=== PATIENT | male | born 1945 | race Caucasian/White ===

== ENCOUNTER 2018-12-29 16:43 | Inpatient (IN) | payer OTHER ==
[2018-12-29] MEDS ORDERED: Furosemide 40 MG/4 ML VIAL IVPUSH ONE (17:11)
--- NOTE | 2018-12-29 17:14 | EDM.PDOC ---
ED HPI GENERAL MEDICAL PROBLEM - General Chief Complaint: Cardiovascular Problem Stated Complaint: heart issues Time Seen by Provider: 12/29/18 17:00 Source of Information: Reports: Patient, Family History Limitations: Reports: No Limitations - History of Present Illness INITIAL COMMENTS - FREE TEXT/NARRATIVE: 73-year-old male who has ongoing shortness of breath, peripheral edema and water retention over the past several weeks being followed by cardiology in [place] and at the [place]. He is taking Lasix but he is not improving. He has had a nuclear med study as well as an echocardiogram in the last month. It shows a low ejection fraction, 2 weeks ago his ejection fraction was only 20%. His rate usually runs 90-110, but over the past 24 hours it's been 130 to 135, he's had increased shortness of breath with any activity and he called his veterinary radiologist and he told him to come in and get evaluated. He is not having pain. He feels his lower extremity edema is getting worse. Denies any fever or chills. No urinary symptoms. Onset: Gradual Duration: Week(s): (Over the course of several weeks but much worse over the past 48 hours) Associated Symptoms: Reports: Malaise, Shortness of Breath, Weakness. Denies: Chest Pain, Cough - Related Data Allergies Allergy/AdvReac Type Severity Reaction Status Date / Time No Known Allergies Allergy Verified 12/29/18 16:59 Home Meds: Home Meds Levothyroxine Sodium [Synthroid] 150 mcg PO DAILY 11/28/18 [History] Metoprolol Succinate 12.5 mg PO BID 11/28/18 [History] Nitroglycerin 1 tab SL ASDIRECTED 11/28/18 [History] Potassium Chloride 0.5 tab PO BID 11/28/18 [History] atorvaSTATin [Lipitor] 0.5 tab PO BEDTIME 11/28/18 [History] Furosemide 40 mg PO BID #60 12/31/18 [Rx] Lisinopril [Prinivil] 5 mg PO DAILY #30 tablet 12/31/18 [Rx] Magnesium Oxide 400 mg PO BID #60 tablet 12/31/18 [Rx] Past Medical History HEENT History: Reports: Impaired Vision Cardiovascular History: Reports: SOB on Exertion Genitourinary History: Reports: Renal Calculus Musculoskeletal History: Reports: Fracture Social & Family History - Tobacco Use Smoking Status *Q: Never Smoker - Caffeine Use Caffeine Use: Reports: Coffee - Recreational Drug Use Recreational Drug Use: No ED ROS GENERAL - Review of Systems Review Of Systems: See Below Constitutional: Denies: Fever, Chills Respiratory: Reports: Shortness of Breath Cardiovascular: Denies: Chest Pain, Palpitations GI/Abdominal: Denies: Abdominal Pain, Nausea, Vomiting : Reports: No Symptoms Neurological: Reports: Weakness ED EXAM, GENERAL - Physical Exam Exam: See Below Exam Limited By: No Limitations General Appearance: Alert, No Apparent Distress Respiratory/Chest: No Respiratory Distress, Other (Decreased breath sounds in both posteriorly) Cardiovascular: Tachycardia, Irregularly Irregular (Somewhat irregular rhythm) GI/Abdominal: Soft, Non-Tender, Other (Feels mildly distended) Extremities: Pedal Edema (2+ pedal edema past the knees bilaterally, symmetric) Neurological: Alert, Oriented, No Motor/Sensory Deficits Psychiatric: Normal Affect, Normal Mood Skin Exam: Warm, Dry Course - Vital Signs Last Recorded V/S: Last Vital Signs Temp 206.2 F H 12/31/18 07:44 Pulse 97 12/31/18 08:23 Resp 22 H 12/31/18 07:44 BP 124/67 12/31/18 08:24 Pulse Ox 93 L 12/31/18 07:44 - Orders/Labs/Meds Labs: Laboratory Tests 12/29/18 12/29/18 Range/Units 17:19 17:19 WBC 7.8 (4.5-11.0) K/uL RBC 4.40 (4.30-5.90) M/uL Hgb 13.6 (12.0-15.0) g/dL Hct 39.5 L (40.0-54.0) % MCV 90 (80-98) fL MCH 31 (27-31) pg MCHC 34 (32-36) % Plt Count 293 (150-400) K/uL Neut % (Auto) 60 (36-66) % Lymph % (Auto) 24 (24-44) % [place] % (Auto) 12 H (2-6) % Eos % (Auto) 4 (2-4) % Baso % (Auto) 1 (0-1) % Sodium 137 L (140-148) mmol/L Potassium 3.6 (3.6-5.2) mmol/L Chloride 103 (100-108) mmol/L Carbon Dioxide 18 L (21-32) mmol/L Anion Gap 19.6 H (5.0-14.0) mmol/L BUN 23 H (7-18) mg/dL Creatinine 1.2 (0.8-1.3) mg/dL Est Cr Clr Drug Dosing 53.19 mL/min Estimated GFR (MDRD) 59 L (>60) Glucose 103 (74-106) mg/dL Calcium 9.3 (8.5-10.1) mg/dL Total Bilirubin 0.9 (0.2-1.0) mg/dL AST 30 (15-37) U/L ALT 37 (12-78) U/L Alkaline Phosphatase 110 (46-116) U/L Troponin I 0.030 (0.000-0.056) ng/mL Total Protein 6.6 (6.4-8.2) g/dL Albumin 3.7 (3.4-5.0) g/dL Globulin 2.9 (2.3-3.5) g/dL Albumin/Globulin Ratio 1.3 (1.2-2.2) Meds: Medications Discontinued Medications Generic Name Dose Route Start Last Admin Trade Name Freq PRN Reason Stop Dose Admin Acetaminophen 650 mg 12/29/18 19:56 Tylenol PO Q4H PRN Pain (Mild 1-3)/fever Albuterol 2.5 mg 12/29/18 19:56 Proventil Neb Soln NEB Q4H PRN Shortness Of Breath/wheezing Atorvastatin Calcium 5 mg 12/29/18 21:00 12/30/18 21:22 Lipitor PO 5 mg BEDTIME [facility] Administration Enoxaparin Sodium 40 mg 12/29/18 19:56 12/29/18 21:04 Lovenox SUBCUT 40 mg DAILY [facility] Administration Enoxaparin Sodium 40 mg 12/30/18 21:00 12/30/18 21:23 Lovenox SUBCUT 40 mg Q24H [facility] Administration Furosemide 40 mg 12/29/18 17:11 12/29/18 17:21 Lasix IVPUSH 12/29/18 17:12 40 mg ONETIME ONE Administration Furosemide 40 mg 12/30/18 09:20 12/30/18 09:31 Lasix IVPUSH 12/30/18 09:21 40 mg NOW ONE Administration Furosemide 40 mg 12/30/18 19:00 12/30/18 18:04 Lasix IVPUSH 12/30/18 19:01 40 mg NOW ONE Administration Furosemide 40 mg 12/31/18 08:30 12/31/18 08:33 Lasix IVPUSH 12/31/18 08:31 40 mg NOW ONE Administration Magnesium Sulfate 2 gm/ Premix 50 mls @ 25 mls/hr 12/30/18 10:00 12/30/18 16: 58 IV 12/30/18 17:59 25 mls/hr Q6H [facility] Administration Levothyroxine Sodium 150 mcg 12/30/18 07:30 12/31/18 07:40 Synthroid PO 150 mcg DAILY@0730 [facility] Administration Lisinopril 5 mg 12/30/18 11:00 12/31/18 08:24 Prinivil PO 5 mg DAILY [facility] Administration Magnesium Oxide 400 mg 12/30/18 09:15 12/31/18 08:23 Magnesium Oxide PO 400 mg BID [facility] Administration Metoprolol Succinate 12.5 mg 12/29/18 21:00 12/31/18 08:23 Toprol Xl PO 12.5 mg BID [facility] Administration Ondansetron HCl 4 mg 12/29/18 19:56 Zofran IV Q4H PRN Nausea/Vomiting Polyethylene Glycol 17 gm 12/29/18 19:56 Miralax PO DAILY PRN Constipation Potassium Chloride 10 meq 12/29/18 21:00 12/31/18 08:23 Potassium Chloride PO 10 meq BID [facility] Administration Potassium Chloride 40 meq 12/31/18 08:30 12/31/18 08:32 Klor-Con M20 PO 12/31/18 08:31 40 meq ONETIME ONE Administration Potassium Chloride 40 meq 12/31/18 12:45 12/31/18 13:10 Klor-Con M20 PO 12/31/18 12:46 40 meq ONETIME ONE Administration Sodium Chloride 10 ml 12/29/18 19:56 Saline Flush FLUSH ASDIRECTED PRN Keep Vein Open - Re-Assessments/Exams Free Text/Narrative Re-Assessment/Exam: 12/29/18 17:54 IV was started, CBC CMP and troponin obtained. Past records were reviewed including his recent echocardiogram and nuclear medicine stress test. His ejection fraction almost 4 weeks ago was 37%, on his echocardiogram 2 weeks ago it was less than 20. An IV was started and he was given 40 mg of IV Lasix. Two- view chest x-ray obtained shows significant congestive heart failure with bilateral pleural effusions and cardiomegaly. 12/29/18 18:06 Troponin was normal. CBC also normal. Kidney function is basically normal, GFR just slightly low at 59. 12/29/18 18:07 Dr. Pollard of the hospitalist service was consult to evaluate the patient for admission for IV diuresis and monitoring of worsening congestive heart failure. Departure - Departure Time of Disposition: 19:04 Disposition: Admitted As Inpatient 64 Condition: Fair Clinical Impression: Congestive heart failure (CHF) Qualifiers: Heart failure type: combined systolic and diastolic Heart failure chronicity: acute on chronic Qualified Code(s): I50.43 - Acute on chronic combined systolic (congestive) and diastolic (congestive) heart failure
--- NOTE | 2018-12-29 18:22 | CRLCR ---
Indication: Dyspnea. Technique: PA and lateral views the chest were obtained. Comparison: None Findings: The heart is borderline in size. Bibasilar atelectasis and/or infiltrates and small bilateral pleural effusions are seen. No pneumothorax is identified. Impression: Borderline cardiomegaly. Bibasilar atelectasis and/or infiltrates and bilateral pleural effusions Dictated by Roxana Caraballo MD @ Dec 29 2018 6:20PM Signed by Dr. Roxana Caraballo @ Dec 29 2018 6:20PM
--- NOTE | 2018-12-29 19:09 | PCM.HP.2 ---
H&P History of Present Illness - General Date of Service: 12/29/18 Admit Problem/Dx: Admission Diagnosis/Problem Admission Diagnosis/Problem Congestive heart failure Source of Information: Patient, Family, Old Records, Provider, RN Notes Reviewed History Limitations: Reports: No Limitations - History of Present Illness Initial Comments - Free Text/Narative: Mr. Kmuar is a 73-year-old gentleman who was admitted through the emergency department with increased peripheral edema, tachycardia, and shortness of breath , secondary to congestive heart failure exacerbation. Over the past 2-1/2 months he's had difficulty with shortness of breath. Recent evaluation has included echocardiogram which showed decreased left ventricular function and estimated ejection fraction of 20%, decreased right ventricular function, severe MR and TR, as well as pulmonary hypertension. Nuclear medicine Myoview study was obtained and showed a small area of ischemia as well as previous area of infarct. Left ventricular function was also documented decreased with estimated ejection fraction of 34%. He recently had an appointment with cardiology but unfortunately his studies were not available for review at that time. He has another appointment scheduled with cardiology in mid January. He is experienced shortness of breath over the past several months but it's been somewhat worse over the past few days and he's developed fairly significant peripheral edema with swelling up to his knees. Troponin level was found to be within normal range and he is received 40 mg of IV furosemide in the emergency department. He admits that he has not been following a strict low-sodium diet. - Related Data Allergies/Adverse Reactions: Allergies Allergy/AdvReac Type Severity Reaction Status Date / Time No Known Allergies Allergy Verified 12/29/18 16:59 Home Medications: Home Meds Furosemide 0.5 tab PO BID 11/28/18 [History] Levothyroxine Sodium [Synthroid] 150 mcg PO DAILY 11/28/18 [History] Metoprolol Succinate 12.5 mg PO BID 11/28/18 [History] Nitroglycerin 1 tab SL ASDIRECTED 11/28/18 [History] Potassium Chloride 0.5 tab PO BID 11/28/18 [History] atorvaSTATin [Lipitor] 0.5 tab PO BEDTIME 11/28/18 [History] Past Medical History HEENT History: Reports: Impaired Vision Cardiovascular History: Reports: SOB on Exertion Genitourinary History: Reports: Renal Calculus Musculoskeletal History: Reports: Fracture Social & Family History - Tobacco Use Smoking Status *Q: Never Smoker - Caffeine Use Caffeine Use: Reports: Coffee - Recreational Drug Use Recreational Drug Use: No H&P Review of Systems - Review of Systems: Review Of Systems: See Below General: Reports: Weakness. Denies: Fever, Chills HEENT: Reports: No Symptoms Pulmonary: Reports: Shortness of Breath. Denies: Wheezing, Pleuritic Chest Pain , Cough, Sputum, Hemoptysis Cardiovascular: Reports: Dyspnea on Exertion, Edema. Denies: Chest Pain, Palpitations, Orthopnea, PND, Lightheadedness Gastrointestinal: Reports: No Symptoms Genitourinary: Reports: No Symptoms Musculoskeletal: Reports: No Symptoms Skin: Reports: No Symptoms Psychiatric: Reports: No Symptoms Neurological: Reports: No Symptoms Hematologic/Lymphatic: Reports: No Symptoms Immunologic: Reports: No Symptoms Exam - Exam Exam: See Below - Vital Signs Vital Signs: Last Vital Signs Temp 97.6 F 12/29/18 17:04 Pulse 118 H 12/29/18 18:38 Resp 36 H 12/29/18 18:38 BP 140/95 H 12/29/18 18:38 Pulse Ox 92 L 12/29/18 18:38 Weight: 194 lb 14.218 oz - Exam Quality Assessment: DVT Prophylaxis General: Alert, Oriented, Cooperative, Moderate Distress HEENT: Conjunctiva Clear, Hearing Intact, Mucosa Moist & [place], Normal Nasal Septum, Posterior Pharynx Clear, Pupils Equal Neck: Supple, Trachea Midline, +2 Carotid Pulse wo Bruit Lungs: Decreased Breath Sounds, Rales. No: Rhonchi, Rub, Wheezing Cardiovascular: Regular Rhythm, Normal S1, Normal S2, Tachycardia, Systolic Murmur. No: Diastolic Murmur, Gallop/S3, Gallop/S4 GI/Abdominal Exam: Soft, Non-Tender, No Organomegaly, No Distention Back Exam: Normal Inspection, Full Range of Motion Extremities: Non-Tender, Pedal Edema Skin: Warm, Dry, Intact Neurological: Cranial Nerves Intact, Strength Equal Bilateral, Normal Speech, Normal Tone, Sensation Intact. No: Focal Deficit Neuro Extensive - Mental Status: Alert, Oriented x3, Normal Mood/Affect, Normal Cognition, Memory Intact - Patient Data Lab Results Last 24 hrs: Laboratory Results - last 24 hr 12/29/18 12/29/18 Range/Units 17:19 17:19 WBC 7.8 (4.5-11.0) K/uL RBC 4.40 (4.30-5.90) M/uL Hgb 13.6 (12.0-15.0) g/dL Hct 39.5 L (40.0-54.0) % MCV 90 (80-98) fL MCH 31 (27-31) pg MCHC 34 (32-36) % Plt Count 293 (150-400) K/uL Neut % (Auto) 60 (36-66) % Lymph % (Auto) 24 (24-44) % [place] % (Auto) 12 H (2-6) % Eos % (Auto) 4 (2-4) % Baso % (Auto) 1 (0-1) % Sodium 137 L (140-148) mmol/L Potassium 3.6 (3.6-5.2) mmol/L Chloride 103 (100-108) mmol/L Carbon Dioxide 18 L (21-32) mmol/L Anion Gap 19.6 H (5.0-14.0) mmol/L BUN 23 H (7-18) mg/dL Creatinine 1.2 (0.8-1.3) mg/dL Est Cr Clr Drug Dosing 53.19 mL/min Estimated GFR (MDRD) 59 L (>60) Glucose 103 (74-106) mg/dL Calcium 9.3 (8.5-10.1) mg/dL Total Bilirubin 0.9 (0.2-1.0) mg/dL AST 30 (15-37) U/L ALT 37 (12-78) U/L Alkaline Phosphatase 110 (46-116) U/L Troponin I 0.030 (0.000-0.056) ng/mL Total Protein 6.6 (6.4-8.2) g/dL Albumin 3.7 (3.4-5.0) g/dL Globulin 2.9 (2.3-3.5) g/dL Albumin/Globulin Ratio 1.3 (1.2-2.2) Result Diagrams: 12/29/18 17:19 12/29/18 17:19 *Q Meaningful Use (ADM) - VTE Risk Assess *Q Each Risk Factor Represents 1 Point: Swollen Legs, Current, Obesity ( BMI > 25 kg/m2), Congestive heart failure (CHF) Total Score 1 Point Risk Factors: 3 Each Risk Factor Represents 2 Points: None Total Score 2 Point Risk Factors: 0 Each Risk Factor Represents 3 Points: Age 75 Years or Greater Total Score 3 Point Risk Factors: 3 Each Risk Factor Represents 5 Points: None Total Score 5 Point Risk Factors: 0 Venous Thromboembolism Risk Factor Score *Q: 6 Problem List Initiated/Reviewed/Updated: Yes Orders Last 24hrs: Active Orders 24 hr Category Date Time Status Patient Status Manage Transfer [TRANSFER] Routine ADT 12/29/18 18:59 Ordered EKG Documentation Completion [RC] ASDIRECTED Care 12/29/18 17:08 Active Resuscitation Status Routine Resus Stat 12/29/18 19:00 Ordered EKG 12 Lead [EK] Routine Ther 12/29/18 17:08 Ordered Assessment/Plan Comment:: ASSESSMENT AND PLAN CONGESTIVE HEART FAILURE-recent evaluation has documented severely decreased left ventricular function, decreased right ventricular function, severe MR and TR, and pulmonary hypertension. He has been taking furosemide 20 mg twice daily and readily admits that he has not been following a strict low-sodium diet. He is been eating ham recently and over the past few days is noted significant worsening of his peripheral edema as well as some increase in shortness of breath. -2 g sodium diet -Furosemide 40 mg IV given in emergency department -Reassess fluid status in a.m. with response to furosemide, further diuresis to be ordered after review -Consider addition of MARLENE inhibitor therapy to current regimen -Outpatient follow-up with cardiology scheduled -Monitor in ICU overnight, if stable transfer to [facility] surgical status MAINTENANCE ISSUES -DVT prophylaxis; Lovenox 40 mg subcutaneous daily -GI prophylaxis; continue outpatient PPI therapy -Thompson catheter; not indicated -Nutrition; 2 g sodium diet -Nicotine dependence; not required CODE STATUS-FULL CODE ADMISSION STATUS-patient will be admitted to inpatient status, expect at least a 2 night hospital stay for evaluation and management of problems as outlined above. At the time of this admission I do not reasonably expected evaluation and management of this problem will require more than a 96 hour hospital stay. DISPOSITION-anticipate discharge to home after the hospital stay. PRIMARY CARE PROVIDER-patient receives health care through the [place] [facility] system - Mortality Measure Prognosis:: Good
[2018-12-29] MEDS ORDERED: Sodium Chloride 0.9% 10 ML Syringe FLUSH PRN (19:56)
[2018-12-29] MEDS ORDERED: Albuterol 0.083% 2.5 MG/3 ML Neb Soln NEB PRN (19:56)
[2018-12-29] MEDS ORDERED: Enoxaparin 40 MG/0.4 ML Syringe SUBCUT SCH (19:56)
[2018-12-29] MEDS ORDERED: Acetaminophen 325 MG Tab PO PRN (19:56)
[2018-12-29] MEDS ORDERED: Polyethylene Glycol 3350 Powder 17 GM Packet PO PRN (19:56)
[2018-12-29] MEDS ORDERED: Ondansetron 4 MG/2 ML SDV IV PRN (19:56)
[2018-12-29] MEDS: Potassium Chloride 10 MEQ Cap.ER PO SCH (21:04)
[2018-12-29] MEDS: Metoprolol Succinate 25 MG Tab.ER PO SCH (21:04)
[2018-12-29] MEDS: atorvaSTATin 10 MG Tab PO SCH (21:07)
[2018-12-30] MEDS: Levothyroxine 50 MCG Tab PO SCH (07:42)
[2018-12-30] MEDS: Metoprolol Succinate 25 MG Tab.ER PO SCH ×2 (08:48→21:22)
[2018-12-30] MEDS: Potassium Chloride 10 MEQ Cap.ER PO SCH ×2 (08:48→21:21)
[2018-12-30] MEDS ORDERED: Furosemide 40 MG/4 ML VIAL IVPUSH ONE ×2 (09:20→19:00)
[2018-12-30] MEDS: Magnesium Oxide 400 MG Tab PO SCH ×2 (09:33→21:22)
[2018-12-30] MEDS: Magnesium Sulfate/Water 2 GM in Premix Bag 1 BAG IV SCH ×2 (09:35→16:58)
--- NOTE | 2018-12-30 11:14 | PCM.PN ---
- General Info Date of Service: 12/30/18 Subjective Update: Mr. Kumar has been stable since admission, with good diuresis. Level of dyspnea has improved and peripheral edema markedly improved. He currently denies any symptoms of chest pain or pressure. Functional Status: Reports: Tolerating Diet, Urinating - Review of Systems General: Reports: Weakness. Denies: Fever, Chills Pulmonary: Reports: Shortness of Breath. Denies: Pleuritic Chest Pain, Cough, Sputum, Hemoptysis, Wheezing Cardiovascular: Reports: Dyspnea on Exertion, Edema. Denies: Chest Pain, Palpitations, Orthopnea, PND, Lightheadedness Gastrointestinal: Reports: No Symptoms - Patient Data Vitals - Most Recent: Last Vital Signs Temp 98.2 F 12/30/18 08:00 Pulse 115 H 12/30/18 08:48 Resp 26 H 12/30/18 08:00 BP 129/84 12/30/18 08:48 Pulse Ox 90 L 12/30/18 08:00 Weight - Most Recent: 190 lb I&O - Last 24 Hours: Intake & Output 12/29/18 12/30/18 12/30/18 22:59 06:59 14:59 Intake Total 120 200 360 Output Total 1850 700 300 Balance -1730 -500 60 Lab Results Last 24 Hours: Laboratory Results - last 24 hr 12/29/18 12/29/18 12/30/18 Range/Units 17:19 17:19 04:33 WBC 7.8 5.9 (4.5-11.0) K/uL RBC 4.40 4.05 L (4.30-5.90) M/uL Hgb 13.6 12.2 (12.0-15.0) g/dL Hct 39.5 L 36.8 L (40.0-54.0) % MCV 90 91 (80-98) fL MCH 31 30 (27-31) pg MCHC 34 33 (32-36) % Plt Count 293 245 (150-400) K/uL Neut % (Auto) 60 56 (36-66) % Lymph % (Auto) 24 27 (24-44) % [place] % (Auto) 12 H 12 H (2-6) % Eos % (Auto) 4 4 (2-4) % Baso % (Auto) 1 1 (0-1) % Sodium 137 L (140-148) mmol/L Potassium 3.6 (3.6-5.2) mmol/L Chloride 103 (100-108) mmol/L Carbon Dioxide 18 L (21-32) mmol/L Anion Gap 19.6 H (5.0-14.0) mmol/L BUN 23 H (7-18) mg/dL Creatinine 1.2 (0.8-1.3) mg/dL Est Cr Clr Drug Dosing 53.19 mL/min Estimated GFR (MDRD) 59 L (>60) Glucose 103 (74-106) mg/dL Calcium 9.3 (8.5-10.1) mg/dL Magnesium (1.8-2.4) mg/dL Total Bilirubin 0.9 (0.2-1.0) mg/dL AST 30 (15-37) U/L ALT 37 (12-78) U/L Alkaline Phosphatase 110 (46-116) U/L Troponin I 0.030 (0.000-0.056) ng/mL Total Protein 6.6 (6.4-8.2) g/dL Albumin 3.7 (3.4-5.0) g/dL Globulin 2.9 (2.3-3.5) g/dL Albumin/Globulin Ratio 1.3 (1.2-2.2) 12/30/18 Range/Units 04:33 WBC (4.5-11.0) K/uL RBC (4.30-5.90) M/uL Hgb (12.0-15.0) g/dL Hct (40.0-54.0) % MCV (80-98) fL MCH (27-31) pg MCHC (32-36) % Plt Count (150-400) K/uL Neut % (Auto) (36-66) % Lymph % (Auto) (24-44) % [place] % (Auto) (2-6) % Eos % (Auto) (2-4) % Baso % (Auto) (0-1) % Sodium 142 (140-148) mmol/L Potassium 3.9 (3.6-5.2) mmol/L Chloride 106 (100-108) mmol/L Carbon Dioxide 25 (21-32) mmol/L Anion Gap 11.3 (5.0-14.0) mmol/L BUN 21 H (7-18) mg/dL Creatinine 1.2 (0.8-1.3) mg/dL Est Cr Clr Drug Dosing 53.19 mL/min Estimated GFR (MDRD) 59 L (>60) Glucose 89 (74-106) mg/dL Calcium 8.9 (8.5-10.1) mg/dL Magnesium 1.5 L (1.8-2.4) mg/dL Total Bilirubin (0.2-1.0) mg/dL AST (15-37) U/L ALT (12-78) U/L Alkaline Phosphatase (46-116) U/L Troponin I (0.000-0.056) ng/mL Total Protein (6.4-8.2) g/dL Albumin (3.4-5.0) g/dL Globulin (2.3-3.5) g/dL Albumin/Globulin Ratio (1.2-2.2) Med Orders - Current: Current Medications Acetaminophen (Tylenol) 650 mg PO Q4H PRN PRN Reason: Pain (Mild 1-3)/fever Albuterol (Proventil Neb Soln) 2.5 mg NEB Q4H PRN PRN Reason: Shortness Of Breath/wheezing Atorvastatin Calcium (Lipitor) 5 mg PO BEDTIME [facility] Last Admin: 12/29/18 21:07 Dose: 5 mg Enoxaparin Sodium (Lovenox) 40 mg SUBCUT Q24H [facility] Furosemide (Lasix) 40 mg IVPUSH NOW ONE Stop: 12/30/18 19:01 Magnesium Sulfate 2 gm/ Premix 50 mls @ 25 mls/hr IV Q6H [facility] Stop: 12/30/18 17:59 Last Admin: 12/30/18 09:35 Dose: 25 mls/hr Levothyroxine Sodium (Synthroid) 150 mcg PO DAILY@0730 [facility] Last Admin: 12/30/18 07:42 Dose: 150 mcg Lisinopril (Prinivil) 5 mg PO DAILY [facility] Magnesium Oxide (Magnesium Oxide) 400 mg PO BID [facility] Last Admin: 12/30/18 09:33 Dose: 400 mg Metoprolol Succinate (Toprol Xl) 12.5 mg PO BID [facility] Last Admin: 12/30/18 08:48 Dose: 12.5 mg Ondansetron HCl (Zofran) 4 mg IV Q4H PRN PRN Reason: Nausea/Vomiting Polyethylene Glycol (Miralax) 17 gm PO DAILY PRN PRN Reason: Constipation Potassium Chloride (Potassium Chloride) 10 meq PO BID [facility] Last Admin: 12/30/18 08:48 Dose: 10 meq Sodium Chloride (Saline Flush) 10 ml FLUSH ASDIRECTED PRN PRN Reason: Keep Vein Open Discontinued Medications Enoxaparin Sodium (Lovenox) 40 mg SUBCUT DAILY [facility] Last Admin: 12/29/18 21:04 Dose: 40 mg Furosemide (Lasix) 40 mg IVPUSH ONETIME ONE Stop: 12/29/18 17:12 Last Admin: 12/29/18 17:21 Dose: 40 mg Furosemide (Lasix) 40 mg IVPUSH NOW ONE Stop: 12/30/18 09:21 Last Admin: 12/30/18 09:31 Dose: 40 mg - Exam Quality Assessment: DVT Prophylaxis General: Alert, Oriented, Cooperative, Mild Distress Lungs: Clear to Auscultation, Normal Respiratory Effort Cardiovascular: Regular Rhythm, Tachycardia, Murmurs GI/Abdominal Exam: Soft, Non-Tender, No Organomegaly, No Distention Extremities: Non-Tender, Pedal Edema - Problem List Review Problem List Initiated/Reviewed/Updated: Yes - My Orders Last 24 Hours: My Active Orders 12/29/18 19:00 Resuscitation Status Routine 12/29/18 19:56 Ambulate [RC] QID Cardiac Monitoring [RC] Q6H Height and Weight [RC] DAILY Intake and Output [RC] QSHIFT Notify Provider Vital Signs [RC] ASDIRECTED Oxygen Therapy [RC] PRN RT Aerosol Therapy [RC] ASDIRECTED Up With Assistance [RC] ASDIRECTED Up to Chair [RC] QID Vital Signs [RC] Q4H Acetaminophen [Tylenol] 650 mg PO Q4H PRN Albuterol [Proventil Neb Soln] 2.5 mg NEB Q4H PRN Ondansetron [Zofran] 4 mg IV Q4H PRN Polyethylene Glycol 3350 [MiraLAX] 17 gm PO DAILY PRN Sodium Chloride 0.9% [Saline Flush] 10 ml FLUSH ASDIRECTED PRN Saline Lock Insert [OM.PC] Routine 12/29/18 21:00 Metoprolol Succinate [Toprol XL] 12.5 mg PO BID Potassium Chloride 10 meq PO BID atorvaSTATin [Lipitor] 5 mg PO BEDTIME 12/29/18 Dinner 2 Gram Sodium Diet [DIET] 12/30/18 07:30 Levothyroxine [Synthroid] 150 mcg PO DAILY@0730 12/30/18 09:15 Magnesium Oxide 400 mg PO BID 12/30/18 10:00 Magnesium Sulfate/Water [Magnesium Sulfate in Water Premix] 2 gm Premix Bag 1 bag IV Q6H 12/30/18 10:59 Patient Status [ADT] Routine 12/30/18 11:00 Lisinopril [Prinivil] 5 mg PO DAILY 12/30/18 19:00 Furosemide [Lasix] 40 mg IVPUSH NOW ONE 12/30/18 21:00 Enoxaparin [Lovenox] 40 mg SUBCUT Q24H 12/31/18 05:00 BASIC METABOLIC PANEL,BMP [CHEM] Timed CBC WITH AUTO DIFF [HEME] Timed MAGNESIUM [CHEM] Timed - Plan Plan:: ASSESSMENT AND PLAN CONGESTIVE HEART FAILURE-recent evaluation has documented severely decreased left ventricular function, decreased right ventricular function, severe MR and TR, and pulmonary hypertension. Good diuresis thus far with improvement in peripheral edema and shortness of breath -2 g sodium diet -Furosemide 40 mg IV twice daily -Add Lisinopril 5 mg by mouth daily -Outpatient follow-up with cardiology scheduled -Transfer to medical surgical status on telemetry MAINTENANCE ISSUES -DVT prophylaxis; Lovenox 40 mg subcutaneous daily -GI prophylaxis; not indicated -Thompson catheter; not indicated -Nutrition; 2 g sodium diet -Nicotine dependence; not required CODE STATUS-FULL CODE ADMISSION STATUS-patient will be admitted to inpatient status, expect at least a 2 night hospital stay for evaluation and management of problems as outlined above. At the time of this admission I do not reasonably expected evaluation and management of this problem will require more than a 96 hour hospital stay. DISPOSITION-anticipate discharge to home after the hospital stay. PRIMARY CARE PROVIDER-patient receives health care through the [place] [facility] system
[2018-12-30] MEDS: Lisinopril 5 MG Tab PO SCH (13:29)
[2018-12-30] MEDS ORDERED: Enoxaparin 40 MG/0.4 ML Syringe SUBCUT SCH (21:00)
[2018-12-30] MEDS: atorvaSTATin 10 MG Tab PO SCH (21:22)
[2018-12-31] MEDS: Levothyroxine 50 MCG Tab PO SCH (07:40)
[2018-12-31] MEDS: Potassium Chloride 10 MEQ Cap.ER PO SCH (08:23)
[2018-12-31] MEDS: Magnesium Oxide 400 MG Tab PO SCH (08:23)
[2018-12-31] MEDS: Metoprolol Succinate 25 MG Tab.ER PO SCH (08:23)
[2018-12-31] MEDS: Lisinopril 5 MG Tab PO SCH (08:24)
[2018-12-31] MEDS ORDERED: Furosemide 40 MG/4 ML VIAL IVPUSH ONE (08:30)
[2018-12-31] MEDS ORDERED: Potassium Chloride 20 MEQ Tab.ER PO ONE ×2 (08:30→12:45)
--- NOTE | 2018-12-31 12:30 | PCM.DCSUM1 ---
Discharge Summary - Hospital Course Brief History: Mr. Kumar is a 73-year-old gentleman who was admitted through the emergency department with weakness and shortness of breath, increased peripheral edema, secondary to exacerbation of congestive heart failure. - Discharge Data Discharge Date: 12/31/18 Discharge Disposition: Home, [facility] 06 Condition: Stable - Discharge Diagnosis/Problem(s) (1) Congestive heart failure (CHF) SNOMED Code(s): 25060011 ICD Code: I50.9 - HEART FAILURE, UNSPECIFIED Status: Acute Current Visit : Yes Qualifiers: Heart failure type: combined systolic and diastolic Heart failure chronicity: acute on chronic Qualified Code(s): I50.43 - Acute on chronic combined systolic (congestive) and diastolic (congestive) heart failure - Patient Summary/Data Hospital Course: Mr. Kumar is a 73-year-old gentleman who was admitted through the emergency department with increased peripheral edema, tachycardia, and shortness of breath , secondary to congestive heart failure exacerbation. Over the past 2-1/2 months he's had difficulty with shortness of breath. Recent evaluation has included echocardiogram which showed decreased left ventricular function and estimated ejection fraction of 20%, decreased right ventricular function, severe MR and TR, as well as pulmonary hypertension. Nuclear medicine Myoview study was obtained and showed a small area of ischemia as well as previous area of infarct. Left ventricular function was also documented decreased with estimated ejection fraction of 34%. He recently had an appointment with cardiology but unfortunately his studies were not available for review at that time. He has another appointment scheduled with cardiology in mid January. He is experienced shortness of breath over the past several months but it's been somewhat worse over the past few days and he's developed fairly significant peripheral edema with swelling up to his knees. Troponin level was found to be within normal range and he is received 40 mg of IV furosemide in the emergency department. He admits that he has not been following a strict low-sodium diet. He was admitted to the intensive care unit for more close monitoring. Throughout his hospital stay he was noted to have a more mild resting tachycardia that did increase with activity. Sinus tachycardia is felt secondary to his underlying congestive heart failure. Through his hospital stay he had excellent diuresis with repeated doses of IV furosemide. By the time of discharge his peripheral edema had totally resolved and he was feeling significantly improved with less shortness of breath. Lisinopril 5 mg by mouth daily was initiated during the hospital stay and will be continued after discharge. He did require supplementation of potassium level with aggressive diuresis. Magnesium level was noted to be low and he was placed on magnesium oxide twice daily, this will also be continued after discharge. Dose of metoprolol was continued throughout the hospital stay and on discharge his dose of furosemide will be increased to 40 mg by mouth twice daily. He will be discharged home with home care follow-up including congestive heart failure program through home care services. He will weigh himself daily and contact his physician if his weight increases 3-4 pounds over a few days. I did spend time instructing him on the importance of a low-sodium diet as well as reviewing important aspects of a low-sodium diet. Activity will be as tolerated and he will be on a strict 2 g sodium diet on discharge. Follow-up appointment will be scheduled with his primary care provider at the [facility] within 1 week, BMP as well as a magnesium level should be obtained at the time of follow-up appointment. He already has scheduled appointment for a cardiology consult in mid January. During hospitalization he was noted to have hypoxia at night documented oxygen saturations of 88% or lower while sleeping. He will be discharged home with nocturnal oxygen 2 L/m via nasal cannula. - Patient Instructions Diet: Low Sodium Activity: As Tolerated Other/Special Instructions: Please schedule follow-up appointment with primary care provider at the [facility] in [facility]. Please arrange for home care follow-up at home including congestive heart failure program. Please arrange for nocturnal oxygen at home after discharge. - Discharge Plan *PRESCRIPTION DRUG MONITORING PROGRAM REVIEWED*: Not Applicable *COPY OF PRESCRIPTION DRUG MONITORING REPORT IN PATIENT SHASTA: Not Applicable Prescriptions/Med Rec: Lisinopril [Prinivil] 5 mg PO DAILY #30 tablet Magnesium Oxide 400 mg PO BID #60 tablet Home Medications: Home Meds Levothyroxine Sodium [Synthroid] 150 mcg PO DAILY 11/28/18 [History] Metoprolol Succinate 12.5 mg PO BID 11/28/18 [History] Nitroglycerin 1 tab SL ASDIRECTED 11/28/18 [History] Potassium Chloride 0.5 tab PO BID 11/28/18 [History] atorvaSTATin [Lipitor] 0.5 tab PO BEDTIME 11/28/18 [History] Furosemide 40 mg PO BID #60 12/31/18 [Rx] Lisinopril [Prinivil] 5 mg PO DAILY #30 tablet 12/31/18 [Rx] Magnesium Oxide 400 mg PO BID #60 tablet 12/31/18 [Rx] Patient Handouts: Heart Failure, [id number] - Discharge Summary/Plan Comment DC Time >30 min.: No - Patient Data Vitals - Most Recent: Last Vital Signs Temp 206.2 F H 12/31/18 07:44 Pulse 97 12/31/18 08:23 Resp 22 H 12/31/18 07:44 BP 124/67 12/31/18 08:24 Pulse Ox 93 L 12/31/18 07:44 Weight - Most Recent: 182 lb 3.2 oz I&O - Last 24 hours: Intake & Output 12/30/18 12/31/18 12/31/18 22:59 06:59 14:59 Intake Total 1180 220 480 Output Total 1775 1000 450 Balance -595 -780 30 Lab Results - Last 24 hrs: Laboratory Results - last 24 hr 12/31/18 12/31/18 Range/Units 05:00 05:00 WBC 6.9 (4.5-11.0) K/uL RBC 4.02 L (4.30-5.90) M/uL Hgb 12.2 (12.0-15.0) g/dL Hct 36.6 L (40.0-54.0) % MCV 91 (80-98) fL MCH 30 (27-31) pg MCHC 33 (32-36) % Plt Count 239 (150-400) K/uL Neut % (Auto) 59 (36-66) % Lymph % (Auto) 24 (24-44) % [place] % (Auto) 12 H (2-6) % Eos % (Auto) 5 H (2-4) % Baso % (Auto) 1 (0-1) % Sodium 144 (140-148) mmol/L Potassium 3.1 L (3.6-5.2) mmol/L Chloride 106 (100-108) mmol/L Carbon Dioxide 30 (21-32) mmol/L Anion Gap 11.1 (5.0-14.0) mmol/L BUN 18 (7-18) mg/dL Creatinine 1.2 (0.8-1.3) mg/dL Est Cr Clr Drug Dosing 53.01 mL/min Estimated GFR (MDRD) 59 L (>60) Glucose 79 (74-106) mg/dL Calcium 8.4 L (8.5-10.1) mg/dL Magnesium 1.9 (1.8-2.4) mg/dL Med Orders - Current: Current Medications Acetaminophen (Tylenol) 650 mg PO Q4H PRN PRN Reason: Pain (Mild 1-3)/fever Albuterol (Proventil Neb Soln) 2.5 mg NEB Q4H PRN PRN Reason: Shortness Of Breath/wheezing Atorvastatin Calcium (Lipitor) 5 mg PO BEDTIME [facility] Last Admin: 12/30/18 21:22 Dose: 5 mg Enoxaparin Sodium (Lovenox) 40 mg SUBCUT Q24H [facility] Last Admin: 12/30/18 21:23 Dose: 40 mg Levothyroxine Sodium (Synthroid) 150 mcg PO DAILY@0730 [facility] Last Admin: 12/31/18 07:40 Dose: 150 mcg Lisinopril (Prinivil) 5 mg PO DAILY [facility] Last Admin: 12/31/18 08:24 Dose: 5 mg Magnesium Oxide (Magnesium Oxide) 400 mg PO BID [facility] Last Admin: 12/31/18 08:23 Dose: 400 mg Metoprolol Succinate (Toprol Xl) 12.5 mg PO BID [facility] Last Admin: 12/31/18 08:23 Dose: 12.5 mg Ondansetron HCl (Zofran) 4 mg IV Q4H PRN PRN Reason: Nausea/Vomiting Polyethylene Glycol (Miralax) 17 gm PO DAILY PRN PRN Reason: Constipation Potassium Chloride (Potassium Chloride) 10 meq PO BID [facility] Last Admin: 12/31/18 08:23 Dose: 10 meq Potassium Chloride (Klor-Con M20) 40 meq PO ONETIME ONE Stop: 12/31/18 12:46 Sodium Chloride (Saline Flush) 10 ml FLUSH ASDIRECTED PRN PRN Reason: Keep Vein Open Discontinued Medications Enoxaparin Sodium (Lovenox) 40 mg SUBCUT DAILY [facility] Last Admin: 12/29/18 21:04 Dose: 40 mg Furosemide (Lasix) 40 mg IVPUSH ONETIME ONE Stop: 12/29/18 17:12 Last Admin: 12/29/18 17:21 Dose: 40 mg Furosemide (Lasix) 40 mg IVPUSH NOW ONE Stop: 12/30/18 09:21 Last Admin: 12/30/18 09:31 Dose: 40 mg Furosemide (Lasix) 40 mg IVPUSH NOW ONE Stop: 12/30/18 19:01 Last Admin: 12/30/18 18:04 Dose: 40 mg Furosemide (Lasix) 40 mg IVPUSH NOW ONE Stop: 12/31/18 08:31 Last Admin: 12/31/18 08:33 Dose: 40 mg Magnesium Sulfate 2 gm/ Premix 50 mls @ 25 mls/hr IV Q6H [place] Stop: 12/30/18 17:59 Last Admin: 12/30/18 16:58 Dose: 25 mls/hr Potassium Chloride (Klor-Con M20) 40 meq PO ONETIME ONE Stop: 12/31/18 08:31 Last Admin: 12/31/18 08:32 Dose: 40 meq - Exam General: Reports: Alert, Oriented, Cooperative, No Acute Distress Lungs: Reports: Clear to Auscultation, Normal Respiratory Effort Cardiovascular: Reports: Regular Rhythm, Tachycardia, Murmurs GI/Abdominal Exam: Soft, Non-Tender, No Organomegaly, No Distention Extremities: Non-Tender, No Pedal Edema
== END 2018-12-31 13:54 | disposition home health service (06) | DRG 293 ==
LOC: JP.ED 16:43 → JP.ICU 18:59
PROVIDERS: ADMIT Hospitalist; ATTEND Hospitalist
DX: I50.43 Acute on chronic combined systolic (congestive) and diastolic (congestive) heart failure (principal); H54.7 Unspecified visual loss; Z79.890 Hormone replacement therapy; Z79.899 Other long term (current) drug therapy
CPT/HCPCS: 36415; 71046; 80048; 80053; 83735; 84484; 85025; 93005; 93010; 99285-25; A9270-GY; J1650; J1940; J3475

== ENCOUNTER 2019-02-25 13:29 | Emergency (ER) | payer OTHER ==
--- NOTE | 2019-02-25 14:43 | EDM.PDOC ---
ED HPI GENERAL MEDICAL PROBLEM - General Chief Complaint: General Stated Complaint: HEART ISSUES Time Seen by Provider: 02/25/19 14:34 Source of Information: Reports: Patient, RN Notes Reviewed History Limitations: Reports: No Limitations - History of Present Illness INITIAL COMMENTS - FREE TEXT/NARRATIVE: 74-year-old gentleman presents emergency department today complaint of shortness of breath. He has a known history of congestive heart failure is in the process of getting an AICD is currently wearing a life vest, was recently hospitalized within the last month for exacerbation of congestive heart failure. Has been on Lasix orally milligrams twice a day which usually works well for him unfortunately over the last week or so he's had a weight gain or edema in his lower extremities and scrotum and feeling more short of breath specifically with exertion his Lasix was increased to 80 mg in the morning 40 mg in the evening by his primary care for reevaluation at 3 days. - Related Data Allergies Allergy/AdvReac Type Severity Reaction Status Date / Time No Known Allergies Allergy Verified 12/29/18 16:59 Home Meds: Home Meds Nitroglycerin 1 tab SL ASDIRECTED 11/28/18 [History] atorvaSTATin [Lipitor] 0.5 tab PO BEDTIME 11/28/18 [History] Furosemide 40 mg PO BID #60 12/31/18 [Rx] Lisinopril [Prinivil] 5 mg PO DAILY #30 tablet 12/31/18 [Rx] Magnesium Oxide 400 mg PO BID #60 tablet 12/31/18 [Rx] Aspirin 81 mg PO DAILY 02/25/19 [History] Levothyroxine 25 mcg PO DAILY 02/25/19 [History] Metoprolol Tartrate [Lopressor] 100 mg PO BID 02/25/19 [History] Potassium Bicarbonate/Cit Ac [Effer-K] 20 meq PO BID 02/25/19 [History] metOLazone [Metolazone] 2.5 mg PO ASDIRECTED #4 tablet 02/25/19 [Rx] Past Medical History HEENT History: Reports: Impaired Vision Cardiovascular History: Reports: Heart Failure, SOB on Exertion Genitourinary History: Reports: Renal Calculus Other Genitourinary History: bladder stones Musculoskeletal History: Reports: Fracture Neurological History: Reports: Head Trauma - Past Surgical History Neurological Surgical History: Reports: Other (See Below) Other Neurological Surgeries/Procedures: subdural hematoma Social & Family History - Tobacco Use Smoking Status *Q: Never Smoker - Caffeine Use Caffeine Use: Reports: Coffee - Recreational Drug Use Recreational Drug Use: No ED ROS GENERAL - Review of Systems Review Of Systems: See Below Constitutional: Reports: No Symptoms HEENT: Reports: No Symptoms Respiratory: Reports: Shortness of Breath. Denies: Cough, Sputum, Hemoptysis Cardiovascular: Reports: Dyspnea on Exertion GI/Abdominal: Reports: No Symptoms : Reports: Other (Scrotal swelling) ED EXAM, GENERAL - Physical Exam Exam: See Below Exam Limited By: No Limitations General Appearance: Alert, WD/WN, No Apparent Distress Respiratory/Chest: No Respiratory Distress, Lungs Clear, Normal Breath Sounds, No Accessory Muscle Use, Chest Non-Tender Cardiovascular: Regular Rate, Rhythm, No Murmur Extremities: Pedal Edema (+3 pitting edema) Course - Vital Signs Last Recorded V/S: Last Vital Signs Temp 98.4 F 02/25/19 14:29 Pulse 96 02/25/19 14:29 Resp 16 02/25/19 14:29 BP 120/74 02/25/19 14:29 Pulse Ox 97 02/25/19 14:29 - Orders/Labs/Meds Orders: Active Orders 24 hr Category Date Time Status Cardiac Monitoring [RC] .As Directed Care 02/25/19 14:38 Active EKG Documentation Completion [RC] ASDIRECTED Care 02/25/19 14:39 Active Peripheral IV Care [RC] . DIRECTED Care 02/25/19 14:39 Active Sodium Chloride 0.9% [Saline Flush] Med 02/25/19 14:38 Active 10 ml FLUSH ASDIRECTED PRN Peripheral IV Insertion Adult [OM.PC] Stat Oth 02/25/19 14:38 Ordered Saline Lock Insert [OM.PC] Stat Oth 02/25/19 14:38 Ordered EKG 12 Lead [EK] Stat Ther 02/25/19 14:38 Ordered Medication Orders Sodium Chloride (Saline Flush) 10 ml FLUSH ASDIRECTED PRN PRN Reason: Keep Vein Open Last Admin: 02/25/19 14:56 Dose: 10 ml Labs: Laboratory Tests 02/25/19 02/25/19 Range/Units 14:38 14:38 WBC 6.9 (4.5-11.0) K/uL RBC 4.26 L (4.30-5.90) M/uL Hgb 13.2 (12.0-15.0) g/dL Hct 39.3 L (40.0-54.0) % MCV 92 (80-98) fL MCH 31 (27-31) pg MCHC 34 (32-36) % Plt Count 190 (150-400) K/uL Neut % (Auto) 57 (36-66) % Lymph % (Auto) 25 (24-44) % [place] % (Auto) 11 H (2-6) % Eos % (Auto) 6 H (2-4) % Baso % (Auto) 1 (0-1) % Sodium 145 (140-148) mmol/L Potassium 4.1 (3.6-5.2) mmol/L Chloride 107 (100-108) mmol/L Carbon Dioxide 30 (21-32) mmol/L Anion Gap 8.5 (5.0-14.0) mmol/L BUN 28 H D (7-18) mg/dL Creatinine 1.4 H (0.8-1.3) mg/dL Est Cr Clr Drug Dosing 44.89 mL/min Estimated GFR (MDRD) 49 L (>60) Glucose 95 (74-106) mg/dL Calcium 9.0 (8.5-10.1) mg/dL Total Bilirubin 1.1 H (0.2-1.0) mg/dL AST 26 (15-37) U/L ALT 25 (12-78) U/L Alkaline Phosphatase 106 (46-116) U/L Troponin I < 0.017 (0.000-0.056) ng/mL NT-Pro-B Natriuret Pep 9424 H (5-450) pg/mL Total Protein 6.5 (6.4-8.2) g/dL Albumin 3.4 (3.4-5.0) g/dL Globulin 3.1 (2.3-3.5) g/dL Albumin/Globulin Ratio 1.1 L (1.2-2.2) Meds: Medications Generic Name Dose Route Start Last Admin Trade Name Freq PRN Reason Stop Dose Admin Sodium Chloride 10 ml 02/25/19 14:38 02/25/19 14:56 Saline Flush FLUSH 10 ml ASDIRECTED PRN Administration Keep Vein Open Discontinued Medications Generic Name Dose Route Start Last Admin Trade Name Freq PRN Reason Stop Dose Admin Bumetanide 2 mg 02/25/19 14:40 02/25/19 14:55 Bumex IVPUSH 02/25/19 14:41 2 mg ONETIME ONE Administration Metolazone 2.5 mg 02/25/19 16:46 02/25/19 16:55 Zaroxolyn PO 02/25/19 16:47 2.5 mg ONETIME ONE Administration Departure - Departure Time of Disposition: 17:59 Disposition: Home, Self-Care 01 Condition: Fair Clinical Impression: Congestive heart failure (CHF) Qualifiers: Heart failure type: combined systolic and diastolic Heart failure chronicity: acute on chronic Qualified Code(s): I50.43 - Acute on chronic combined systolic (congestive) and diastolic (congestive) heart failure - Discharge Information Referrals: PCP,None [Primary Care Provider] - Forms: ED Department Discharge Additional Instructions: Continue on your Lasix medication, try the metolazone 2.5 mg every other day started on Saturday keep your follow-up appointment with cardiology next week, call return to the emergency department worsening of symptoms - My Orders Last 24 Hours: My Active Orders 02/25/19 14:38 Cardiac Monitoring [RC] .As Directed Sodium Chloride 0.9% [Saline Flush] 10 ml FLUSH ASDIRECTED PRN Peripheral IV Insertion Adult [OM.PC] Stat Saline Lock Insert [OM.PC] Stat EKG 12 Lead [EK] Stat 02/25/19 14:39 EKG Documentation Completion [RC] ASDIRECTED Peripheral IV Care [RC] . DIRECTED - Assessment/Plan Last 24 Hours: My Active Orders 02/25/19 14:38 Cardiac Monitoring [RC] .As Directed Sodium Chloride 0.9% [Saline Flush] 10 ml FLUSH ASDIRECTED PRN Peripheral IV Insertion Adult [OM.PC] Stat Saline Lock Insert [OM.PC] Stat EKG 12 Lead [EK] Stat 02/25/19 14:39 EKG Documentation Completion [RC] ASDIRECTED Peripheral IV Care [RC] . DIRECTED Plan: Assessment Acuity = acute Site and laterality = exacerbation congestive heart failure Etiology = unknown Manifestations = none Location of injury = Home Lab values = CBC unremarkable creatinine 11.1.4 consistent with chronic renal failure stage G IIIa BNP elevated 9424 consistent fluid overload type pattern, chest x-ray shows cardiomegaly stable otherwise no acute process EKG reveals a left axis deviation with sinus rhythm first-degree block left bundle-branch block Plan He had good relief with 2 mg Bumex IV and 1 dose of metolazone plan is to discharge home on metolazone 2.5 mg by mouth every other day he does have follow -up with his health informatics specialist next week medications faxed to [facility] This note was dictated using [employer] voice recognition software please call with any questions on syntax or grammar.
[2019-02-25] MEDS: Bumetanide 1 MG/4 ML MDV IVPUSH ONE (14:55)
[2019-02-25] MEDS: Sodium Chloride 0.9% 10 ML Syringe FLUSH PRN (14:56)
--- NOTE | 2019-02-25 15:50 | CRLCR ---
INDICATION: Shortness of breath COMPARISON: Chest two views 12/29/2018 TECHNIQUE: Frontal and lateral views of the chest FINDINGS: There are small bilateral pleural effusions. There is stable mild enlargement of the cardiac silhouette. The lung apices are clear. Degenerative changes are noted in the right shoulder. IMPRESSION: Stable cardiomegaly and small bilateral pleural effusions. Dictated by Anne De La Paz MD @ Feb 25 2019 3:48PM Signed by Dr. Anne De La Paz @ Feb 25 2019 3:49PM
[2019-02-25] MEDS: Metolazone 2.5 MG Tab PO ONE (16:55)
== END 2019-02-25 18:08 | disposition home or self-care (01) ==
LOC: JP.ED 13:29
DX: I50.43 Acute on chronic combined systolic (congestive) and diastolic (congestive) heart failure (principal); Z79.899 Other long term (current) drug therapy; Z79.82 Long term (current) use of aspirin
CPT/HCPCS: 36415; 71046; 80053; 83880; 84484; 85025; 93005; 99284; 99285; A9270; J3490

== ENCOUNTER 2022-07-18 13:25 | Emergency (ER) | payer MEDICARE, OTHER ==
[2022-07-18 14:44] LABS: ESTIMATED GFR 56 mL/min (>60)
== END 2022-07-18 19:28 | disposition home or self-care (01) ==
LOC: JP.ED 13:25
DX: T82.897A Other specified complication of cardiac prosthetic devices, implants and grafts, initial encounter (principal); I49.9 Cardiac arrhythmia, unspecified; R77.8 Other specified abnormalities of plasma proteins; E03.9 Hypothyroidism, unspecified; Z79.82 Long term (current) use of aspirin; Z79.899 Other long term (current) drug therapy
CPT/HCPCS: 36415; 80053; 83735; 84443; 84484; 85025; 93005; 93010; 99284; 99285